=== PATIENT | female | born 1965 | race Two or more races ===

== ENCOUNTER 2023-12-21 18:28 | Emergency (ER) | payer BC, SELFPAY ==
[2023-12-21 18:34] VITALS: BP 144/100
[2023-12-21 19:07] LABS: % Basophils 1.3 % (0-2); % Eosinophils 1.8 % (0-6); % Immature Granulocytes 0.3 % (0-0.5); % Lymphocytes 33.1 % (20.5-51.1); % Monocytes 12.5 % (1.7-9.3); Absolute Basophils 0.1 10^3/uL (0-0.2); Absolute Eosinophils 0.1 10^3/uL (0-0.7); Absolute Lymphocytes 1.3 10^3/uL (1.2-3.4); Absolute Monocytes 0.5 10^3/uL (0.1-0.6); Hematocrit 39.2 % (37.0-47.0); Hemoglobin 13.7 g/dL (12.0-16.0); Mean Corp Hgb Conc. 34.9 g/dL (33.0-37.0); Mean Corpuscular Hgb 32.3 pg (27.0-31.0); Mean Corpuscular Volume 92.5 fL (81.0-99.0); Mean Platelet Volume 10.4 fL (7.4-10.4); Nucleated Red Blood Cells % 0 %; Platelet Count 255 10^3/uL (130-400); Red Blood Cell Count 4.24 10^6/uL (4.20-5.40); Red Cell Dist. Width 12.1 % (11.5-14.5); White Blood Cell Count 3.8 10^3/uL (4.8-10.8)
[2023-12-21 19:20] LABS: ALT (SGPT) 71 U/L (0-35); AST (SGOT) 60 U/L (14-36); Albumin 4.1 g/dl (3.5-5.0); Alkaline Phosphatase 76 U/L (38-126); Blood Urea Nitrogen 9 mg/dl (7-17); Carbon Dioxide 26 mmol/L (22-30); Chloride 108 mmol/L (98-107); Glucose 118 mg/dl (70-99); Potassium 3.8 mmol/L (3.5-5.1); Sodium 140 mmol/L (135-145); Total Bilirubin 0.3 mg/dl (0.2-1.3); Total Protein 6.6 g/dl (6.3-8.2); eGFR > 60.00
[2023-12-21 20:00] VITALS: BP 118/90
[2023-12-21 20:01] VITALS: BMI 27.8
--- NOTE | 2023-12-21 20:23 | ED.GENMED ---
History of Present Illness
General
Chief Complaint: Cold/Flu/URI Symptoms
Source: patient
Exam Limitations: none
Time Seen by Provider: 12/21/23 19:46
History of Present Illness
History of Present Illness:
This is a 58 year old female that comes in with c/o chest tightness. States that on she started with what she thought was flu like symptoms. States that she was sick over the weekend with chills and a cough. States that in the past 24 hours
she started to feel worse and her chest was tight. States that she got a phone call and she was told that the conference she was at last week the people were developing COVID. States that she had a home test and she tested positive yesterday.
States that she called the PCP and was told to come to the ER to be checked. States that she had chills over the weekend, feels SOB with tightness and left lower abd discomfort. States that she also has a headache. Denies any fever, chest pain,
nausea, vomiting, diarrhea, dizziness, urinary burning.
Past History
Past History
ED Past Medical History: Asthma and Other (Back pain, Numbness arms and legs)
ED Past Surgical History:
Social History
Tobacco: Non-smoker
Alcohol: Occasional
Personal:
Living: with family
Review of Systems
Review of Systems
All Other Systems: ROS reviewed and negative except as documented in HPI and ROS
Constitutional: Reports no symptoms; Denies fever or chills
EENT: Reports no symptoms
Respiratory: Reports cough and trouble breathing (Tightness)
Cardiac: Reports no symptoms; Denies chest pain
ABD/GI: Reports abdominal pain (LLQ ); Denies nausea, vomiting or diarrhea
: Reports no symptoms; Denies dysuria, frequency or urgency
Musculoskeletal: Reports no symptoms
Skin: Reports no symptoms
Neurological: Reports headache; Denies dizzy
Psychiatric: Reports no symptoms
Phy Exam
General Physical Exam
General Presentation: no apparent distress
General age: appears stated age
General Skin: warm and dry
General Habitus: normal
General Mental: alert
General Hydration: dry mucous membranes
ENT Exam
ENT Exam: TM's normal, pharynx normal and neck supple
Eye Exam
Eye Exam: EOMI
Cardiovascular Exam
Cardiovascular Exam: regular rate/rhythm, no edema, no murmur and normal peripheral pulses
Pulmonary Exam
Pulmonary Exam: lungs clear, no respiratory distress, no rales, chest non tender, no crackles, no rhonchi, no wheezing and other (Dry cough noted)
Gastrointestinal Exam
Gastrointestinal Exam: normal bowel sounds, non tender, soft, no organomegaly, no pulsatile mass and non distended
Musculoskeletal Exam
Musculoskeletal Exam: full ROM and no edema
Skin Exam
Skin Exam: normal color, warm/dry, no rash and no petechia
Psychiatric Exam
Psychiatric Exam: normal mood/affect
Course
Orders/Labs/Results
Orders:
Orders
12/21/23 18:39
CXR2 [CR Chest - 2 Views ] Urgent
Comment:
Reason For Exam: + covid + cough
12/21/23 18:51
Complete Blood Count/With Diff Urgent
Comprehensive Metabolic Panel Urgent
12/21/23 20:19
0.9% Sodium Chloride 1000 ml [Nss] 1,000 ml IV BOLUS
Acetaminophen [Tylenol] 1,000 mg PO NOW STA
Ipratropium/Albuterol Sulfate [Duoneb] 3 ml INH R NOW ONE
Ketorolac [Toradol] 30 mg IV NOW STA
Abnormal Lab Results
12/21/23
18:51
WBC 3.8 L 10^3/uL
(4.8-10.8)
MCH 32.3 H pg
(27.0-31.0)
Monocytes % 12.5 H %
(1.7-9.3)
Chloride 108 H mmol/L
(98-107)
Glucose 118 H mg/dl
(70-99)
AST 60 H U/L
(14-36)
ALT 71 H U/L
(0-35)
12/21/23 18:51
12/21/23 18:51
WBC very slightly low. Glucose nonfasting. AST/ALT mildly elevated (this goes along with COVID),
Vital Signs
Initial and Last Documented VS:
Initial Vital Signs
Temp Pulse Resp BP Pulse Ox
99.5 F 83 16 144/100 97
12/21/23 18:34 12/21/23 18:34 12/21/23 18:34 12/21/23 18:34 12/21/23 18:34
Last Documented Vital Signs
Temp Pulse Resp BP Pulse Ox
99.5 F 83 16 135/92 98
12/21/23 18:34 12/21/23 18:34 12/21/23 18:34 12/21/23 20:40 12/21/23 20:39
MDM/Problems Addressed
Differential Diagnosis Includes:
COVID
MDM/Problems Addressed:
This is a 58 year old female that comes in with c/o chest tightness. States that she has COVID and in the past 24 hours she has been feeling tight. States that the PCP told her to come here for evaluation,
Explained to patient that her blood work shows that her Liver enzymes are slightly elevated. This goes along with COVID. Her WBC are slightly low as COVID is a viral illness. Will give patient a liter of fluid. Tylenol and Ibuprofen and a duo neb.
Explained that she needs to increase her water intake to 8-8oz glasses daily. Will also give patient a prescription for Tessalon pearls. Will also give patient a prescription for Albuteral that she can do nebs at home. Follow up with the family
doctor. Return with any concerns.
Into see patient again and patient states that she is feeling better. Will discharge home. O2 97% on room air.
Chronic conditions affecting care: Asthma
Acute Exacerbation and/or Progression of Chronic Illness: Asthma
*Critical Care Note
Total Time (30-74mins, 75-104mins- exclusive of procedures): Not Applicable
ED Attending Note
-
Portions of this chart may have been created with voice recognition software.� Occasional wrong word or��sound alike� substitutions may have occurred due to the inherent limitations of voice recognition software.
Discharge Plan
Departure
Patient Disposition: Home (Routine Discharge)
Date of Disposition: 12/21/23
Time of Disposition: 21:20
Patient with high blood pressure during this ER visit?: Yes
Condition: Good
Covid-19: Not Applicable
Discharge Problem:
COVID-19
Instructions: COVID-19 ED, BLOOD PRESSURE
Prescriptions:
New
benzonatate 200 mg capsule
200 mg PO BID PRN (Reason: Cough) Qty: 10 0RF
albuterol sulfate 2.5 mg /3 mL (0.083 %) solution for nebulization
2.5 mg inhalation Q4H PRN (Reason: shortness of breath or wheezing) Qty: 75 0RF
Referrals:
UNKNOWN,NO INTERVIEW [Family Provider] -
Activity Restrictions/Additional Instructions:
As discussed, please increase your water intake to 8-8oz glasses daily. Please use Tylenol or Ibuprofen for fever or body aches. You have had 2 prescriptions sent to your Pharmacy. The first is for Tessalon Pearls for your cough. The second is for
albuterol for you nebulizer to use at home for chest tightness. Please follow up with the family doctor for recheck. IF YOU HAVE INCREASED SHORTNESS OF BREATH, OR YOU HAVE ANY OTHER CONCERNS PLEASE RETURN TO THE EMERGENCY ROOM.
Interventions
Interventions:
*General Assessment Last Done: 12/21/23 20:01
*Neglect/Abuse Screening Last Done: 12/21/23 20:01
ED- Fall Risk Assessment Last Done: 12/21/23 20:01
*ED COVID-19 Vaccine History Last Done: 12/21/23 20:01
ED- Pulmonary Assessment Last Done: 12/21/23 20:01
Discharge Date and Time
Print Language: CHINESE
[2023-12-21] MEDS: TYLENOL 1000 MG PO (20:33)
[2023-12-21 20:40] VITALS: BP 135/92
[2023-12-21] MEDS: DUONEB 3 ML INH (20:41)
[2023-12-21] MEDS: TORADOL 30 MG IV (20:41)
[2023-12-21] MEDS: NSS 1000 IV (20:41)
== END 2023-12-21 21:51 | disposition home or self-care (01) ==
LOC: EMR 18:28
PROVIDERS: Student in an Organized Health Care Education/Training Program; EMERGENCY PHYSICIAN Emergency Medicine
DX: U07.1 COVID-19 (principal); J45.909 Unspecified asthma, uncomplicated
CPT/HCPCS: 99283; 94640; 96374; 96361; 71046; 80053; 85025

== ENCOUNTER → 2024-04-18 09:27 | Outpatient (REF) | payer BC, SELFPAY | LOC: WDC 09:27 | PROVIDERS: REFERRING PHYSICIAN Obstetrics & Gynecology | DX: R22.30 Localized swelling, mass and lump, unspecified upper limb (principal); N63.32 Unspecified lump in axillary tail of the left breast | CPT/HCPCS: 76642; 77062; 77066 ==

== ENCOUNTER → 2024-05-15 08:48 | Outpatient (REF) | payer BC, SELFPAY | LOC: WDC 08:48 | DX: R92.8 Other abnormal and inconclusive findings on diagnostic imaging of breast (principal) | CPT/HCPCS: 76642 ==

== ENCOUNTER → 2024-09-06 09:53 | Outpatient (REF) | payer BC, SELFPAY | LOC: RAD 09:53 | PROVIDERS: ATTENDING PHYSICIAN Chiropractor; FAMILY PHYSICIAN Nurse Practitioner | DX: M25.551 Pain in right hip (principal) | CPT/HCPCS: 76882 ==

== ENCOUNTER → 2025-04-30 16:03 | Outpatient (REF) | payer BC, SELFPAY | LOC: WDC 16:03 | PROVIDERS: ATTENDING PHYSICIAN Nurse Practitioner Adult Health; FAMILY PHYSICIAN Nurse Practitioner Family | DX: Z12.31 Encounter for screening mammogram for malignant neoplasm of breast (principal); Z80.3 Family history of malignant neoplasm of breast | CPT/HCPCS: 77063; 77067 ==

== ENCOUNTER → 2025-05-04 12:39 | Outpatient (REF) | payer BC, SELFPAY | LOC: HWRAD 12:39 | PROVIDERS: ATTENDING PHYSICIAN Otolaryngology; FAMILY PHYSICIAN Nurse Practitioner Family; REFERRING PHYSICIAN Internal Medicine Pulmonary Disease | DX: J32.4 Chronic pansinusitis (principal) | CPT/HCPCS: 70486 ==